=== PATIENT | male | born 1985 | race Caucasian/White ===

== ENCOUNTER 2019-01-02 07:23 | Day surgery (SDC) | payer BC ==
[2018-12-30 09:49] LABS: Absolute Lymphocytes (CBC) 2.1 K/uL (0.7-4.9); Basophils % 0.9 % (0-1.3); Hematocrit 42.6 % (39.6-49.0); Lymphocytes % 29.4 % (15.3-44.8); MPV 8.1 fL (7.6-11.3); RBC Red Blood Cell Count 4.77 M/uL (4.33-5.43)
[2018-12-30 10:08] LABS: Albumin 4.1 g/dL (3.4-5.0); Bilirubin Direct 0.1 mg/dL (0-0.2); Bilirubin Total 0.6 mg/dL (0.2-1.0); Protein, Total 7.7 g/dL (6.4-8.2)
[2019-01-02] MEDS ORDERED: Ringers Lactate 1,000 ML IV ONE ×2 (07:38→09:21)
[2019-01-02] MEDS ORDERED: CIPROFLOXACIN 400mg IV 400 MG/200 ML BAG IV ONE (07:38)
[2019-01-02] MEDS ORDERED: GLYCOPYRROLATE 0.2 MG/ML SYR ONE ×2 (08:05→09:25)
[2019-01-02] MEDS ORDERED: FENTANYL CITR 250 MCG/5 ML ONE (08:05)
[2019-01-02] MEDS ORDERED: dexAMETHasone 10 MG/ML VIAL ONE (08:05)
[2019-01-02] MEDS ORDERED: MIDAZOLAM HCL 2 MG/2 ML INJ ONE (08:05)
[2019-01-02] MEDS ORDERED: PROPOFOL 200 MG/20 ML VIAL IV ONE (08:05)
[2019-01-02] MEDS ORDERED: LIDOCAINE 2% MPF 5 ML VIAL ONE (08:05)
[2019-01-02] MEDS ORDERED: ROCURONIUM 50 MG/5 ML VIAL IV ONE (08:07)
[2019-01-02] MEDS ORDERED: KETOROLAC 30 MG/ML INJ ONE (09:17)
[2019-01-02] MEDS ORDERED: NEOSTIGMINE 1 MG/ML -5 ML ONE (09:26)
[2019-01-02] MEDS ORDERED: NALOXONE 0.4 MG/ML VIAL ONE (09:41)
--- NOTE | 2019-01-02 09:42 | P.BOP ---
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
[2019-01-02] MEDS: HYDROMORPHONE HCL 1 MG/ML INJ ONE ×4 (10:13→10:30)
[2019-01-02 10:22] VITALS: TEMP 97.2
[2019-01-02] MEDS ORDERED: ONDANSETRON 4 MG/2 ML VIAL ONE (10:29)
[2019-01-02] MEDS ORDERED: CODEINE 30MG/APAP 300MG TAB ONE (11:18)
[2019-01-02 12:19] VITALS: BP 131/83; O2SAT 92
--- NOTE | 2019-01-03 01:15 | DS ---
Date of Discharge: 01/02/2019 Preoperative Diagnoses: Symptomatic cholelithiasis, acute cholecystitis, history of ventral hernias. Postoperative Diagnoses: Symptomatic cholelithiasis, acute cholecystitis, history of ventral hernias . Procedure: Laparoscopic cholecystectomy. Disposition: Home. Activities: As tolerated. No heavy lifting. Followup: Follow up in my office in 1 week. Call for appointment, [phone]. Keep area dry for 48 h ours, then may shower. Keep Steri-Strips intact. Medications: See orders. KARLIE/LEILANI Voice ID: [id number] Report ID: [id number]
--- NOTE | 2019-01-03 01:15 | OP ---
Date of Procedure: 01/02/2019 Surgeon: Braydon Parker MD Lead Massage Therapist: Bibiana Reyes. Preoperative Diagnoses: Symptomatic cholelithiasis, acute cholecystitis, history of ventral hernias with mesh placement in the past. Postoperative Diagnoses: Symptomatic cholelithiasis, acute cholecystitis, history of ventral hernias with mesh placement in the past. Procedure: Laparoscopic cholecystectomy. Estimated Blood Loss: Less than 10 mL. Specimen: Gallbladder. Anesthesia: General plus local. Findings: Patient has a previous mesh placement over the periumbilical region and also over the ingu inal region done in [place] several months ago. Indications: This is the case of a 33-year-old patient, who comes to us with the above diagnoses. F mervat explained the benefits, alternatives, and risks of laparoscopic, possible open cholecystectomy, which include but are not limited to infection, bleeding, damage to adjacent structures, anesthesia c omplications, choledocholithiasis, bile leak, pancreatitis, [place], and even . He also understands this may not relieve any symptoms. He might need more than one surgical intervention. He understood , signed the consent. We might have to alter the placement of the trocar since patient has mesh over the ventral region. So, we proceeded to make our first incision over the epigastric region. Incisi on was carried down to the fascia, which was opened under direct vision. Peritoneum was encountered, opened under direct vision. Vicryl #1 was placed inside of the fascia. Rachel trocar was carefully introduced. No bleeding was obtained. That allowed me to put 2 more trocars in the right upper abhi drant 5 mm each one of them under direct visualization and other one also in the ventral region away from the area of the previous repair 5 mm trocar too. This allowed me to put a 5 mm trocar to the ve ntral region and then proceed with laparoscopic cholecystectomy. A grasper was placed in the fundus of the gallbladder, another grasper in the infundibulum, retracted the gallbladder in the inferolater al fashion exposing the triangle of Calot obtaining critical view of safety. The cystic duct and cys tic artery were clearly isolated, freed circumferentially and a connection between those and the gall bladder was clearly identified. I proceeded to ligate those by using at least 3 clips proximal, 1 cl ip distal, ligation in the middle. Same was done with the cystic artery. No bile leak. No bleeding . The gallbladder was removed from the liver using Bovie cauterizer and removed from abdominal cavit y using an EndoCatch through umbilical incision. The area was inspected once again. Some adhesions that were in the epigastric area were also removed with Endo dorie, but the lower abdomen was not to uched. At that moment, I proceeded to remove the trocars under direct vision, deflated the pneumoper itoneum, closed the fascia with #1 Vicryl. Irrigated subcutaneous tissue, closed that with 3-0 chrom ic and the skin in a subcuticular fashion. Sponge count and instrument counts were correct. Patient tolerated the procedure well. Patient was sent to the Recovery in stable condition. KARLIE/LEILANI Voice ID: [id number] Report ID: [id number]
== END 2019-01-02 12:20 | disposition home or self-care (01) ==
LOC: OR 07:23
PROVIDERS: ATTEND Surgery
PROC: 0FT44ZZ Resection of Gallbladder, Percutaneous Endoscopic Approach (ICD-10-PCS; principal; 2019-01-02 08:30)
DX: K80.12 Calculus of gallbladder with acute and chronic cholecystitis without obstruction (principal); K21.9 Gastro-esophageal reflux disease without esophagitis; F90.9 Attention-deficit hyperactivity disorder, unspecified type; F41.9 Anxiety disorder, unspecified; Z88.0 Allergy status to penicillin; Z80.8 Family history of malignant neoplasm of other organs or systems; Z83.3 Family history of diabetes mellitus; Z82.49 Family history of ischemic heart disease and other diseases of the circulatory system
CPT/HCPCS: 85025; 80048; 36415; 82150; 80076; 88304; 83690; 47562; J2704; J2310; J2250; J3010; J1100; J1170 ×2; J2710; J7120 ×2; J2405; J0744